=== PATIENT | female | born 1985 | race Caucasian/White ===

== ENCOUNTER 2018-04-12 10:34 | Emergency (ER) | payer OTHER ==
[~2018-04-12] VITALS: Ht 157.4 cm; Wt 58.1 kg
[2018-04-12] MEDS ORDERED: PREDNISONE10 MG PO (10:49)
[2018-04-12] MEDS ORDERED: ZOFRAN4 MG PO (10:49)
[2018-04-12] MEDS ORDERED: CLARITIN10 MG PO (10:49)
[2018-04-12] MEDS ORDERED: FLONASE ALLERG9.9 ML NAS (10:49)
== END 2018-04-12 12:30 | disposition home or self-care (01) ==
LOC: ED 10:34
DX: B34.9 Viral infection, unspecified (principal); F17.200 Nicotine dependence, unspecified, uncomplicated

== ENCOUNTER 2018-08-14 12:28 | Emergency (ER) | payer OTHER ==
[~2018-08-14] VITALS: Ht 157.4 cm; Wt 61.7 kg
[~2018-08-14 12:28] MED LIST: CLARITIN10 MG PO; FLONASE ALLERG9.9 ML NAS; PREDNISONE10 MG PO; ZOFRAN4 MG PO
[2018-08-14] MEDS ORDERED: ZOFRAN4 MG PO (12:30)
[2018-08-14] MEDS ORDERED: Peridex 473 ML473 ML PO (12:30)
[2018-08-14] MEDS ORDERED: NAPROSYN500 MG PO (12:30)
[2018-08-14] MEDS ORDERED: PENICILLIN VK500 MG PO (12:30)
== END 2018-08-14 12:42 | disposition home or self-care (01) ==
LOC: ED 12:28
DX: K04.7 Periapical abscess without sinus (principal); K02.9 Dental caries, unspecified; R03.0 Elevated blood-pressure reading, without diagnosis of hypertension

== ENCOUNTER 2019-10-23 12:47 | Emergency (ER) | payer OTHER ==
[~2019-10-23] VITALS: Ht 157.4 cm; Wt 54.4 kg
[~2019-10-23 12:47] MED LIST changes: +NAPROSYN500 MG PO; +PENICILLIN VK500 MG PO; +Peridex 473 ML473 ML PO
[2019-10-23] MEDS ORDERED: SERTRALINE HYDR50 MG PO (13:14)
[2019-10-23] MEDS ORDERED: CLONAZEPAM1 MG PO (13:14)
[2019-10-23] MEDS ORDERED: TRAZODONE50 MG PO (13:14)
[2019-10-23 14:02] LABS: BILIRUBIN NEGATIVE (NEGATIVE); CLARITY CLEAR (CLEAR); COLOR YELLOW (YELLOW); GLUCOSE NEGATIVE (NEGATIVE); KETONE NEGATIVE (NEGATIVE); SPECIFIC GRAVITY 1.015 (1.005-1.030)
[2019-10-23 14:03] LABS: BLOOD 1+ (NEGATIVE); LEUKO ESTERASE NEGATIVE (NEGATIVE); NITRITE NEGATIVE (NEGATIVE); UROBILINOGEN 0.2 E.U./dl (0.2-1.0)
[2019-10-23 14:31] LABS: BASO # 0.1 10*3/uL (0.0-0.1); BASO % 0.7 % (0.0-1.0); EOS # 0.4 10*3/uL (0.0-0.4); EOS % 5.6 % (1.0-4.0); HEMATOCRIT 42.7 % (37.0-47.0); HEMOGLOBIN 13.6 g/dl (12.0-16.0); MEAN CELL VOLUME 87.9 fl (81.0-99.0); MEAN CORPUSCULAR HGB CONC 31.9 g/dl (33.0-37.0); MEAN PLATELET VOLUME 9.4 fl (9.6-12.3); MONO # 0.3 10*3/uL (0.1-1.0); MONO % 4.7 % (3.0-9.0); NEUT # 4.1 10*3/uL (2.3-7.9); NEUT % 59.9 % (47.0-73.0); PLATELET COUNT AUTOMATED 388 10*3/uL (130-400); RED BLOOD COUNT 4.86 10*6/uL (4.10-5.10); RED CELL DISTRI WIDTH 14.7 % (0-14.5); WHITE BLOOD COUNT 6.8 10*3/uL (4.8-10.8)
[2019-10-23 14:34] LABS: WBC 0-2 wbc/hpf (0-5)
[2019-10-23 14:37] LABS: ALBUMIN 3.7 gm/dl (3.1-4.5); ALKALINE PHOSPHATASE 116 U/L (45-117); BUN 8 mg/dl (7-24); CHLORIDE 108 mmol/L (98-107); CREATININE 0.74 mg/dL (0.55-1.02); SGOT/AST 18 IU/L (3-35); SGPT/ALT 23 U/L (12-78); SODIUM 136 mmol/L (136-145); TOTAL PROTEIN 7.8 gm/dL (6.4-8.2)
[2019-10-23] MEDS ORDERED: CLEOCIN HCL150 MG PO (16:24)
== END 2019-10-23 16:56 | disposition home or self-care (01) ==
LOC: ED 12:47
PROVIDERS: Nurse Practitioner Family
DX: L03.114 Cellulitis of left upper limb (principal); Z79.899 Other long term (current) drug therapy; Z79.2 Long term (current) use of antibiotics